=== PATIENT | female | born 1985 | race Caucasian/White ===

== ENCOUNTER → 2018-03-18 09:23 | Outpatient (CLI) | payer MEDICAID ==
[2014-07-19 06:13] VITALS: BMI 25.9
[~2018-03-18 09:23] MED LIST: BIRTH CONTROL PO; CELEXA10 MG PO; KLONOPIN0.5 MG PO
== END | disposition home or self-care (01) ==
LOC: D.NM 09:23
DX: K83.8 Other specified diseases of biliary tract (principal)